=== PATIENT | female | born 1965 | race Caucasian/White ===

== ENCOUNTER → 2019-01-10 | Outpatient (CLI) | payer SELFPAY ==
--- NOTE | 2019-01-10 15:58 | PCVCIMAG ---
APPROVED REPORT Study performed: 01/10/2019 14:48:22 Exam: Stress Echocardiogram Indication: Dyspnea , Chest pain, morbid obesity, fam hx early cad, tobacco use Patient Location: Echo lab Stress Nurse: Diana Orr RN Status: routine Ht: 5 ft 3 in HR: 104 bpm BP: 174/100 mmHg Rhythm: Tachycardia Procedure The patient underwent an Exercise Stress Test using the Felice Protocol. Blood pressure, heart rate, and EKG were monitored. An Echocardiogram was performed by firestopper technician in four stages in quad fashion. At peak stress, four selected images were obtained and placed side by side with resting images for comparison. Stress Test Details Stress Test: Exercise stress testing was performed using a Felice protocol. HR Resting HR: 104 bpmMax Heart Rate (APMHR): 167 bpm Max HR Achieved: 144 bpmTarget HR (85% APMHR): 141 bpm % of APMHR: 86 Recovery HR: 115 bpm HR response to stress: Normal HR response to stress BP Resting BP: 174/100 mmHg Max BP: 180/100 mmHg Recovery BP: 164/88 mmHg BP response to stress: Normal blood pressure response to stress. ECG Resting ECG: Sinus Tachycardia Stress ECG: Sinus Tachycardia ST Change: Normal Maximum ST Deviation: 0 mm Arrhythmia: None Recovery ECG: Sinus Tachycardia Recovery ST Change: Normal Recovery ST Deviation: 0 mm Recovery Arrhythmia: None Clinical Reason for Termination: Dyspnea, Maximal effort Stress Symptoms: limiting Dyspnea Exercise duration: 1 min 54 sec Highest Stage Achieved: Stage 1: 1.7 mph at 10% grade. Exercise capacity: 4.6 METs Overall Exercise Capacity for Age: Poor Scale: Sedentary Angina Score: None Stress ECG Conclusion Clinical: Non-ischemic ECG: Non-ischemic Zimmerman Treadmill Score is 1.0 which is Moderate risk. Pre-Stress Echo The resting Echocardiogram showed normal left ventricular contractility with an estimated Ejection Fraction of about >55%. Normal wall motion in all segments on baseline images. Post-Stress Echo The stress Echocardiogram showed normal left ventricular contractility with an estimated Ejection Fraction of about 65%. Normal augmentation of wall motion in all segments on post stress images. Clinical No clinical or ECG evidence for ischemia. Conclusion Clinical Response: Non-ischemic Exercise Capacity: Below Average Stress ECG Response: Equivocal Stress Echo Images: Non-ischemic Normal stress echocardiogram with submaximal exercise stress. Trace mitral regurgitation. Short exercise time reduces sensitivity of test Other Information Study Quality: Adequate Technically limited study due to body habitus, dyspnea. <Conclusion> Normal stress echocardiogram with submaximal exercise stress. Trace mitral regurgitation. Short exercise time reduces sensitivity of test
== END | disposition home or self-care (01) ==
LOC: PCVCIMAG 15:01
PROVIDERS: ATTEND Internal Medicine Cardiovascular Disease
DX: R07.9 Chest pain, unspecified (principal); R06.00 Dyspnea, unspecified; E66.01 Morbid (severe) obesity due to excess calories; F17.200 Nicotine dependence, unspecified, uncomplicated; I10 Essential (primary) hypertension; Z82.49 Family history of ischemic heart disease and other diseases of the circulatory system
CPT/HCPCS: 93325; 93351